=== PATIENT | female | born 1955 | race Caucasian/White ===

== ENCOUNTER → 2016-10-25 | Outpatient (CLI) | payer BC ==
[~2016-10-25] MED LIST: ALEVE220 MG PO; COZAAR 50 MG TA50 M2 PO; KEFLEX500 MG PO; KLOR-CON 1010 MEQ PO; LASIX 40 MG TAB40 M2 PO; METFORMIN HCL500 MG PO; POTASSIUM20 PO; PREVALITE PACKET4 GM PO; PROZAC20 MG PO; SIMVASTATIN40 MG PO; TYLENOL325 MG PO
== END ==
LOC: ULTRA 08:43
DX: R14.0 Abdominal distension (gaseous) (principal); R68.81 Early satiety; K83.1 Obstruction of bile duct; R10.2 Pelvic and perineal pain; R05 Cough; R10.9 Unspecified abdominal pain; Z90.710 Acquired absence of both cervix and uterus